=== PATIENT | male | born 2000 | race Caucasian/White ===

== ENCOUNTER 2018-07-16 13:39 | Emergency (ER) | payer OTHER ==
[~2018-07-16] VITALS: Ht 182.9 cm; Wt 70.5 kg
[2018-07-16 13:45] VITALS: BP 129/75; TEMP 99.1
[2018-07-16] MEDS ORDERED: CEPHALEXIN500 M1 PO (15:10)
[2018-07-16 15:16] VITALS: PULSE 90
== END 2018-07-16 15:17 | disposition home or self-care (01) ==
LOC: COL.ER 13:39
DX: J02.9 Acute pharyngitis, unspecified (principal); Z88.0 Allergy status to penicillin

== ENCOUNTER 2019-05-17 20:33 | Emergency (ER) | payer OTHER ==
[~2019-05-17] VITALS: Ht 182.9 cm; Wt 70.5 kg
[~2019-05-17 20:33] MED LIST: CEPHALEXIN500 M1 PO
[2019-05-17 20:45] VITALS: BP 141/84; TEMP 98.1
[2019-05-17] MEDS ORDERED: CEPHALEXIN500 M1 PO (21:07)
[2019-05-17] MEDS ORDERED: BACTRIM DS 8001 TAB PO (21:07)
[2019-05-17 21:23] VITALS: PULSE 80
== END 2019-05-17 21:20 | disposition home or self-care (01) ==
LOC: COL.ER 20:33
DX: L02.11 Cutaneous abscess of neck (principal)

== ENCOUNTER 2019-06-18 17:06 | Emergency (ER) | payer OTHER ==
[~2019-06-18] VITALS: Ht 182.9 cm; Wt 70.5 kg
[~2019-06-18 17:06] MED LIST changes: +BACTRIM DS 8001 TAB PO
[2019-06-18 19:11] VITALS: BP 124/80; PULSE 91; TEMP 98.8
== END 2019-06-18 19:12 | disposition home or self-care (01) ==
LOC: COL.ER 17:06
DX: J98.9 Respiratory disorder, unspecified (principal); R50.9 Fever, unspecified; Z88.0 Allergy status to penicillin

== ENCOUNTER 2020-04-15 05:54 | Emergency (ER) | payer OTHER ==
[~2020-04-15] VITALS: Ht 182.9 cm; Wt 70.5 kg
[2020-04-15 05:57] VITALS: TEMP 98
[2020-04-15] MEDS ORDERED: NAPROXEN 3375 MG/TAB PO (07:18)
[2020-04-15] MEDS ORDERED: FLEXERIL 1010 MG/TAB PO (07:18)
[2020-04-15 07:19] LABS: BASO # 0.1 (0.0-0.2); BASO % 0.7 % (0.0-2.0); EOS # 0.3 (0.0-0.7); EOS % 4.7 % (0-4.0); GRAN # 3.3 (1.4-6.5); GRAN % 45.2 % (42.2-75.2); HEMOGLOBIN 14.7 g/dl (13.5-18.0); MEAN CELL VOLUME 84 fl (80.0-100.0); MEAN CORPUSCULAR HEMOGLOBIN 28 pg (27.0-31.0); MEAN CORPUSCULAR HGB CONC 33 g/dl (33.0-37.0); MEAN PLATELET VOLUME 11.7 fl (7.4-10.4); MONO # 0.6 (0.1-0.6); MONO % 8.1 % (1.7-9.3); PLATELET COUNT 233 K/mm3 (130-400); RED BLOOD COUNT 5.25 M/mm3 (4.20-5.60)
[2020-04-15 07:32] LABS: ALANINE AMINOTRANSFERASE 10 U/L (4-49); ALBUMIN 4.9 gm/dL (3.5-5.0); ALKALINE PHOSPHATASE 55 U/L (50-136); ANION GAP 10 mmol/L (7-16); AST,SGOT 29 U/L (15-37); BILIRUBIN,TOTAL 0.9 mg/dL (0.0-1.0); BLOOD UREA NITROGEN 14 mg/dL (9-20); CALCIUM 9.6 mg/dL (8.4-10.2); CARBON DIOXIDE 30 mmol/L (22-30); CHLORIDE 98 mmol/L (98-107); CREATININE, serum 1.23 (0.66-1.25); GLUCOSE 104 mg/dL (74-106); POTASSIUM 3.8 mmol/L (3.4-5.0); SODIUM 138 mmol/L (137-145); TOTAL PROTEIN 8.3 gm/dL (6.4-8.2)
[2020-04-15 07:34] LABS: C-REACTIVE PROTEIN < 0.5 mg/dL (0.0-0.9)
[2020-04-15 07:42] LABS: TROPONIN-I < 0.012 ng/mL (0.000-0.035)
[2020-04-15 07:56] LABS: ERYTHROCYTE SEDIMENTATION RATE 1 mm/hr (0-15)
[2020-04-15 08:45] VITALS: BP 113/68; PULSE 71
== END 2020-04-15 08:45 | disposition home or self-care (01) ==
LOC: COL.ER 05:54
PROVIDERS: Emergency Medicine
DX: R07.9 Chest pain, unspecified (principal); Z20.828 Contact with and (suspected) exposure to other viral communicable diseases; Z79.1 Long term (current) use of non-steroidal anti-inflammatories (NSAID); Z79.52 Long term (current) use of systemic steroids
CPT/HCPCS: J1885; J2060; J2270

== ENCOUNTER 2020-05-01 10:32 | Emergency (ER) | payer OTHER ==
[~2020-05-01] VITALS: Ht 182.9 cm; Wt 70.5 kg
[~2020-05-01 10:32] MED LIST changes: +FLEXERIL 1010 MG/TAB PO; +NAPROXEN 3375 MG/TAB PO
[2020-05-01 10:35] VITALS: BP 122/73; TEMP 96.6
[2020-05-01] MEDS ORDERED: ZOLOFT 100MG100 MG PO (10:38)
[2020-05-01 11:39] LABS: STREP SCREEN NEGATIVE
[2020-05-01] MEDS ORDERED: ZITHROMAX Z PA250 MG PO (11:47)
[2020-05-01 11:53] VITALS: PULSE 95
== END 2020-05-01 11:59 | disposition home or self-care (01) ==
LOC: COL.ER 10:32
PROVIDERS: Nurse Practitioner
DX: J01.90 Acute sinusitis, unspecified (principal); F41.9 Anxiety disorder, unspecified; Z20.828 Contact with and (suspected) exposure to other viral communicable diseases; Z90.49 Acquired absence of other specified parts of digestive tract; Z88.0 Allergy status to penicillin; Z88.1 Allergy status to other antibiotic agents; Z79.52 Long term (current) use of systemic steroids

== ENCOUNTER 2021-10-24 15:30 | Emergency (ER) | payer OTHER ==
[~2021-10-24] VITALS: Ht 182.9 cm; Wt 75.0 kg
[~2021-10-24 15:30] MED LIST changes: +ZITHROMAX Z PA250 MG PO; +ZOLOFT 100MG100 MG PO
[2021-10-24 15:38] VITALS: TEMP 98.3
[2021-10-24] MEDS ORDERED: FLONASE NASAL S16 GM NS (15:54)
[2021-10-24] MEDS ORDERED: SUDAFED60 MG PO (15:54)
[2021-10-24 16:03] VITALS: BP 127/93; PULSE 72
== END 2021-10-24 16:06 | disposition home or self-care (01) ==
LOC: COL.ER 15:30
DX: H69.92 Unspecified Eustachian tube disorder, left ear (principal)